=== PATIENT | male | born 1975 | race Two or more races ===

== ENCOUNTER 2021-08-07 06:57 | Day surgery (SDC) | payer OTHER ==
[~2021-08-07] VITALS: Ht 165.1 cm; Wt 79.4 kg
[2021-08-07] VITALS (12 sets, daily range): BP systolic 101–121; BP diastolic 51–80
[~2021-08-07 06:57] MED LIST: IBUP-1984 PO; cefazolin/dext.iso 2gm/100ml IV ONE; famotidine 20mg tablet PO ONE; ringers solution, lacted 1,000 ML IV SCH
[2021-08-07 08:56] LABS: BASOPHILS % (AUTO) 0.5 % (0-1); EOSINOPHILS # (AUTO) 0.1 X10'3 (0-0.9); EOSINOPHILS % (AUTO) 2.3 % (0-6); LYMPHOCYTES # (AUTO) 1.2 X10'3 (1.1-4.8); LYMPHOCYTES % (AUTO) 28.4 % (21-51); MEAN CORPUSCULAR HEMOGLOBIN 30.1 PG (27.0-31.0); MEAN CORPUSCULAR HGB CONC 32.9 g/dL (33.0-36.5); MEAN CORPUSCULAR VOLUME 91.7 FL (78-98); MEAN PLATELET VOLUME 8.5 FL (7.4-10.4); MONOCYTES # (AUTO) 0.4 X10'3 (0-0.9); MONOCYTES % (AUTO) 10.3 % (2-12); NEUTROPHILS # (AUTO) 2.5 X10'3 (1.8-7.7); NEUTROPHILS % (AUTO) 58.5 % (42-75); PRE OP HEMATOCRIT 44.6 % (42.0-52.0); PRE OP HEMOGLOBIN 14.7 g/dL (14.0-17.9); PRE OP PLATELET COUNT 214 X10'3 (140-440); RED BLOOD COUNT 4.87 X10'6 (4.70-6.10); RED CELL DISTRIBUTION WIDTH 14.2 % (11.5-14.5)
[2021-08-07 09:10] LABS: ALANINE AMINOTRANSFERASE 25 U/L (12-78); ALBUMIN 3.8 G/DL (3.4-5.0); ALKALINE PHOSPHATASE 56 IU/L (46-116); ANION GAP 6 (8-16); ASPARTATE AMINO TRANSFERASE 17 U/L (10-37); BILIRUBIN,TOTAL 0.8 MG/DL (0.1-1.0); BLOOD UREA NITROGEN 11 MG/DL (7-18); BUN/CREATININE RATIO 11.8 (5.4-32.0); CALCIUM 8.5 MG/DL (8.5-10.1); CHLORIDE 105 MMOL/L (99-107); CREATININE 0.93 MG/DL (0.60-1.10); GLUCOSE 78 MG/DL (70-104); POTASSIUM 3.9 MMOL/L (3.5-5.1); SODIUM 143 MMOL/L (135-145); TOTAL CARBON DIOXIDE 32.2 MMOL/L (24-32); TOTAL PROTEIN 7.6 G/DL (6.4-8.2); eGFR 88 ML/MIN
[2021-08-07] MEDS ORDERED: sevoflurane 250ml liquid IH ONE (10:25)
[2021-08-07] MEDS ORDERED: fentaNYL /PF 50mcg/ml 5ml ampule ONE (10:28)
[2021-08-07] MEDS ORDERED: midazolam 1 mg/ML 2ml injection ONE (10:28)
[2021-08-07] MEDS ORDERED: ceFAZolin 1000mg inj ONE (10:48)
[2021-08-07] MEDS ORDERED: ROPIVAcaine 0.5% (5mg/ml) 30ml vial ONE ×2 (10:48→11:09)
[2021-08-07] MEDS ORDERED: morphine 2 MG/ML inj. syringe IV PRN (10:50)
[2021-08-07] MEDS ORDERED: proCHLORperazine 10 MG/2 ml inj IV PRN (10:50)
[2021-08-07] MEDS ORDERED: ondansetron/PF 4mg/2ml inj IV PRN (10:50)
[2021-08-07] MEDS ORDERED: ringers solution, lacted 1,000 ML IV SCH (10:50)
[2021-08-07] MEDS ORDERED: morphine 4 MG/ML inj SYRINge IV PRN (10:50)
[2021-08-07] MEDS ORDERED: meperidine/PF 25mg/ml syringe IV PRN ×2 (10:50)
[2021-08-07] MEDS ORDERED: LIDOcaine 2% (20mg/ml) 5ml vial ONE (11:04)
[2021-08-07] MEDS ORDERED: propofol inj 20 ML IV ONE (11:04)
[2021-08-07] MEDS ORDERED: ondansetron/PF 4mg/2ml inj ONE (11:04)
[2021-08-07] MEDS ORDERED: acetaminophen 1,000mg/100ml IV 100 ML IV ONE (11:04)
[2021-08-07] MEDS ORDERED: dexamethasone sod phosphate 4mg/ml inj. ONE (11:04)
[2021-08-07] MEDS: meperidine/PF 25mg/ml syringe IV PRN ×2 (12:14→12:34)
[2021-08-07] MEDS ORDERED: HYDROcodone/acetaminophen 10/325mg tab PO ONE (13:00)
--- NOTE | 2021-08-07 13:23 | NUR ---
Report called to receiving nurse. Transferred via WHEELCHAIR TO PATROL CAR WITH Belongings . Special Issues communicated to ADAM. PATIENT IN STABLE CONDITION AT TIME OF DC. RFS SENT WITH ADAM. Addendum: 08/07/21 at 1350 by Sohan Wynn RN, RN Amended: Links added.
== END 2021-08-07 13:23 ==
LOC: PAS 06:57
PROVIDERS: ATTEND Orthopaedic Surgery
DX: S83.511A Sprain of anterior cruciate ligament of right knee, initial encounter (principal); S83.241A Other tear of medial meniscus, current injury, right knee, initial encounter; G89.18 Other acute postprocedural pain; Z20.822 Contact with and (suspected) exposure to COVID-19; Z79.899 Other long term (current) drug therapy; Z87.891 Personal history of nicotine dependence; X58.XXXA Exposure to other specified factors, initial encounter; Y93.89 Activity, other specified; Y92.89 Other specified places as the place of occurrence of the external cause; Y99.8 Other external cause status
CPT/HCPCS: 29881; 29888; 36415; 64448; 76937; 80053; 82948; 85025; 87635; 93005; C1713; C1762; C9803; J0131; J0690; J1100; J2001; J2175; J2250; J2270; J2405; J2704; J3010; L1832; Z7506; Z7508; Z7512; A4215; A4618; A6449; A7000; J2795; J7120